=== PATIENT | female | born 1960 | race Caucasian/White ===

== ENCOUNTER 2017-12-06 09:16 | Emergency (ER) | payer MEDICAID, SELFPAY ==
[2017-12-06 09:19] VITALS: BP 133/65; PULSE 76; RESP 18; TEMP 36.6; O2SAT 98
[2017-12-06] MEDS: Amoxicillin 875/Clav. 125 TAB PO (10:15)
--- NOTE | 2017-12-06 10:30 | W.ED.GENAD ---
Discharge Plan Disposition Patient Disposition: HOME Condition: Stable Discharge Details Chief Complaint: DentalOral Clinical Impression: Dental infection Primary Care Provider: NONE,NONE ED Provider: Walter Junior Home Meds and New Rx's Prescriptions: New ibuprofen [IBU] 600 mg tablet 600 mg PO QID PRN (Reason: pain) Qty: 14 RF: 0 amoxicillin-pot clavulanate [Augmentin] 875-125 mg tablet 1 tab PO BID Qty: 20 RF: 0 Discontinued ibuprofen 200 MG tablet 800 mg PO DAILY RF: 0 Discharge Instructions Instructions: Dental Abscess (ED) Additional Instructions: If not seeing signs of improvement please return to the emergency department in 24-48 hours or if you notice any significant worsening of her symptoms return immediately otherwise it is beneficial for you to follow-up with a dental provider for more definitive care of your infected teeth. Referrals: Primary Care Provider [Outside] (as needed) Medical Decision Making Patient presenting to the emergency department for chief complaint of dental infection. Patient has swelling to her left lower jaw with mild external erythema. There is no fluctuance but significant induration is noted. Patient has poor patient throughout the entirety of the oral cavity with multiple missing teeth and severe dental caries. There is concern for dental infection but no signs of Vince's angina, retropharyngeal or peritonsillar abscess. Patient was placed on penicillin in August so I do feel that patient on Augmentin would be beneficial at this time. Patient was strongly encouraged to seek definitive care with a dentist as she extractions to resolve her problem. After discussion of diagnosis and plan of care patient is no further needs, questions, or concerns and states clear understanding to return to the emergency department for any worsening symptoms. HPI General Mode of arrival: ambulatory. Date/Time Provider Initiated Documentation: 12/06/17 09:58. Limitations to Documentation: no limitations. Information obtained by: patient, RN notes reviewed and old records reviewed. History of Present Illness 57 year old F presents to the emergency department with the chief complaint of Dental infection, described as moderate, with intensity rated at 5. and is localized to the mouth. Patient reports no radiation. Patient started experiencing this day(s) (3) and it has been constant. No relieving factors improve symptom(s), No exacerbating factors reported . Patient notes no other symptoms.. Patient did receive the following treatments prior to arrival, NSAID Related Data Home Medications Medication Instructions Recorded Confirmed amoxicillin-pot clavulanate 1 tab PO BID #20 tab 12/06/17 [Augmentin] ibuprofen [IBU] 600 mg PO QID PRN #14 tab 12/06/17 Previous Rx's Medication Instructions Recorded amoxicillin-pot clavulanate 1 tab PO BID #20 tab 12/06/17 [Augmentin] ibuprofen [IBU] 600 mg PO QID PRN #14 tab 12/06/17 Allergies Allergy/AdvReac Type Severity Reaction Status Date / Time codeine Allergy Severe Anaphylaxsi Unverified 12/06/17 09:24 s egg whites Allergy Severe Wheezing Uncoded 12/06/17 09:24 marshmellow Allergy Severe Wheezing Uncoded 12/06/17 09:24 General Stated Complaint: DentalOral HADLEY: 3 Review of Systems Constitutional Denies body ache(s), Denies chills and Denies fever(s) ENT Reports as per HPI, Reports dental pain, Denies throat swelling and Denies tongue swelling Cardiovascular Denies chest pain and Denies dyspnea Respiratory Denies dyspnea Gastrointestinal Denies abdominal pain, Denies nausea and Denies vomiting Integumentary/Breasts Denies rash Neurologic Denies confusion and Denies sensory deficit Psychiatric Denies confusion Allergic/Immunologic Denies throat swelling and Denies tongue swelling PFSH Medical History Depression Fibromyalgia Tobacco abuse disorder Vitamin D deficiency Social History Smoking/Tobacco Use Status: Current every day Surgical History Abdominal hysterectomy Colonoscopy - IV Sedation Oophrectomy, Left Exam Const General: cooperative, no acute distress and not ill appearing Orientation: alert, awake and oriented x3 HENMT Head: normal to inspection Face and sinus: erythema (as noted below), edema (as noted below) and no fluctuance Face images: 1. Erythema and swelling Mouth: lip normal, tongue normal, moist mucous membranes, no drooling and no trismus Teeth and gingiva: poor dentition (throughout) Teeth image: 1. mild erythema no fluctuance, no drainage Throat: posterior oropharynx normal Resp Effort & Inspection: normal respiratory effort, able to speak in complete sentences and no respiratory distress Skin General skin exam: no rashes or lesions noted Neuro General: alert, awake, oriented x3, moves all extremities and no focal motor deficits Sensory Exam: no sensory deficits noted Course Vital Signs Temperature 36.6 C 12/06/17 09:19 Pulse 76 12/06/17 09:19 Respiratory Rate 18 12/06/17 09:19 Blood Pressure 133/65 12/06/17 09:19 Pulse Oximetry 98 12/06/17 09:19 Temperature 36.6 C 12/06/17 09:19 Temperature Source Skin 12/06/17 09:19 Pulse 76 12/06/17 09:19 Respiratory Rate 18 12/06/17 09:19 Respiratory Effort 12/06/17 09:23 Blood Pressure 133/65 12/06/17 09:19 Blood Pressure Position Sitting 12/06/17 09:19 Pulse Oximetry 98 12/06/17 09:19 Oxygen Delivery Method Room Air 12/06/17 09:19 Oxygen Flow Rate 0 12/06/17 09:19 Pain Level 5 12/06/17 09:25
--- NOTE | 2017-12-06 10:38 | ED.GENADUL_ITS ---
Discharge Plan Disposition Patient Disposition: HOME Condition: Stable Discharge Details Chief Complaint: DentalOral Clinical Impression: Dental infection Primary Care Provider: NONE,NONE ED Provider: Walter Junior Home Meds and New Rx's Prescriptions: New ibuprofen [IBU] 600 mg tablet 600 mg PO QID PRN (Reason: pain) Qty: 14 RF: 0 amoxicillin-pot clavulanate [Augmentin] 875-125 mg tablet 1 tab PO BID Qty: 20 RF: 0 Discontinued ibuprofen 200 MG tablet 800 mg PO DAILY RF: 0 Discharge Instructions Instructions: Dental Abscess (ED) Additional Instructions: If not seeing signs of improvement please return to the emergency department in 24-48 hours or if you notice any significant worsening of her symptoms return immediately otherwise it is beneficial for you to follow-up with a dental provider for more definitive care of your infected teeth. Referrals: Primary Care Provider [Outside] (as needed) Medical Decision Making Patient presenting to the emergency department for chief complaint of dental infection. Patient has swelling to her left lower jaw with mild external erythema. There is no fluctuance but significant induration is noted. Patient has poor patient throughout the entirety of the oral cavity with multiple missing teeth and severe dental caries. There is concern for dental infection but no signs of Vince's angina, retropharyngeal or peritonsillar abscess. Patient was placed on penicillin in August so I do feel that patient on Augmentin would be beneficial at this time. Patient was strongly encouraged to seek definitive care with a dentist as she extractions to resolve her problem. After discussion of diagnosis and plan of care patient is no further needs, questions, or concerns and states clear understanding to return to the emergency department for any worsening symptoms. HPI General Mode of arrival: ambulatory . Date/Time Provider Initiated Documentation: 12/06/17 09:58 . Limitations to Documentation: no limitations . Information obtained by: patient, RN notes reviewed and old records reviewed . History of Present Illness 57 year old F presents to the emergency department with the chief complaint of Dental infection, described as moderate, with intensity rated at 5. and is localized to the mouth. Patient reports no radiation. Patient started experiencing this day(s) (3) and it has been constant. No relieving factors improve symptom(s), No exacerbating factors reported . Patient notes no other symptoms.. Patient did receive the following treatments prior to arrival, NSAID Related Data Home Medications Medication Instructions Recorded Confirmed amoxicillin-pot clavulanate 1 tab PO BID #20 tab 12/06/17 [Augmentin] ibuprofen [IBU] 600 mg PO QID PRN #14 tab 12/06/17 Previous Rx's Medication Instructions Recorded amoxicillin-pot clavulanate 1 tab PO BID #20 tab 12/06/17 [Augmentin] ibuprofen [IBU] 600 mg PO QID PRN #14 tab 12/06/17 Allergies Allergy/AdvReac Type Severity Reaction Status Date / Time codeine Allergy Severe Anaphylaxsi Unverified 12/06/17 09:24 s egg whites Allergy Severe Wheezing Uncoded 12/06/17 09:24 marshmellow Allergy Severe Wheezing Uncoded 12/06/17 09:24 General Stated Complaint: DentalOral HADLEY: 3 Review of Systems Constitutional Denies body ache(s), Denies chills and Denies fever(s) ENT Reports as per HPI, Reports dental pain, Denies throat swelling and Denies tongue swelling Cardiovascular Denies chest pain and Denies dyspnea Respiratory Denies dyspnea Gastrointestinal Denies abdominal pain, Denies nausea and Denies vomiting Integumentary/Breasts Denies rash Neurologic Denies confusion and Denies sensory deficit Psychiatric Denies confusion Allergic/Immunologic Denies throat swelling and Denies tongue swelling PFSH Medical History Depression Fibromyalgia Tobacco abuse disorder Vitamin D deficiency Social History Smoking/Tobacco Use Status: Current every day Surgical History Abdominal hysterectomy Colonoscopy - IV Sedation Oophrectomy, Left Exam Const General: cooperative, no acute distress and not ill appearing Orientation: alert, awake and oriented x3 HENMT Head: normal to inspection Face and sinus: erythema (as noted below), edema (as noted below) and no fluctuance Face images: 2 1. Erythema and swelling Mouth: lip normal, tongue normal, moist mucous membranes, no drooling and no trismus Teeth and gingiva: poor dentition (throughout) Teeth image: 2 1. mild erythema no fluctuance, no drainage Throat: posterior oropharynx normal Resp Effort & Inspection: normal respiratory effort, able to speak in complete sentences and no respiratory distress Skin General skin exam: no rashes or lesions noted Neuro General: alert, awake, oriented x3, moves all extremities and no focal motor deficits Sensory Exam: no sensory deficits noted Course Vital Signs Temperature 36.6 C 12/06/17 09:19 Pulse 76 12/06/17 09:19 Respiratory Rate 18 12/06/17 09:19 Blood Pressure 133/65 12/06/17 09:19 Pulse Oximetry 98 12/06/17 09:19 Temperature 36.6 C 12/06/17 09:19 Temperature Source Skin 12/06/17 09:19 Pulse 76 12/06/17 09:19 Respiratory Rate 18 12/06/17 09:19 Respiratory Effort 12/06/17 09:23 Blood Pressure 133/65 12/06/17 09:19 Blood Pressure Position Sitting 12/06/17 09:19 Pulse Oximetry 98 12/06/17 09:19 Oxygen Delivery Method Room Air 12/06/17 09:19 Oxygen Flow Rate 0 12/06/17 09:19 Pain Level 5 12/06/17 09:25
[2017-12-06 10:45] VITALS: BP 107/83; PULSE 94; RESP 16; TEMP 36.9; O2SAT 97
== END 2017-12-06 10:50 | disposition home or self-care (01) ==
PROVIDERS: Emergency Provider Nurse Practitioner Family
DX: K04.7 Periapical abscess without sinus (principal)
CPT/HCPCS: 99283

== ENCOUNTER 2021-05-09 17:17 | Emergency (ER) | payer MEDICARE, SELFPAY ==
[2021-05-09 17:28] VITALS: PULSE 128; RESP 14; TEMP 36.8; O2SAT 96
--- NOTE | 2021-05-09 17:45 | DI.RAD_ITS ---
Exam(s) XR PELVIS AP XR FEMUR LT EXAM: XR PELVIS AP and XR femur LT CLINICAL HISTORY: fall, large hematoma prox left thigh. TECHNIQUE: 2D digital imaging was performed of the left hip. Five views were obtained. AP pelvis a nd lateral left hip views were obtained. COMPARISON: CR ABD FLAT UPRIGHT PA CHEST from 07/02/2014 FINDINGS: BONES: No acute fracture is present. No bony destructive lesion is seen. JOINTS: No dislocation present. SOFT TISSUE: There is a large amount of soft tissue swelling lateral to the left hip. No radiopaque foreign body is seen. IMPRESSION: 1. No acute fracture in the pelvis or left femur. 2. Marked soft tissue swelling lateral to the left hip. DATA REPOSITORY: RADIATION DOSE DELIVERED:
--- NOTE | 2021-05-09 17:48 | ED.GENADUL_ITS ---
Discharge Plan Disposition Patient Disposition: HOME Condition: Stable Discharge Details Clinical Impression: Hematoma of left thigh Primary Care Provider: Allie Dickson ED Provider: Mp Altman Home Meds and New Rx's Prescriptions: Continued ibuprofen [IBU] 600 mg tablet 600 mg PO QID PRN (Reason: pain) Qty: 14 0RF Discharge Instructions Instructions: Hematoma (ED) Additional Instructions: Your xrays did not show any broken bones follow up with your primary care provider in 1-2 weeks if hematoma is not improving if you feel more ill or have severe worsening pain or new pain such as abdominal pain return to the emergency department Medical Decision Making <Suhail Montero MD - Last Filed: 05/09/21 18:24> 61-year-old female denies past medical history presents after falling earlier today being pulled down by her dog while walking her dog, fell onto her left side, large hematoma developed over her left proximal thigh, nonpulsatile, no crepitus or deformity; patient resting comfortably, no acute distress, full range of motion hip knee ankle foot, DP pulse intact sensation intact, patient ambulatory on arrival, lower suspicion for femoral fracture or pelvic fracture, likely contusion with soft tissue hematoma, soft compartments on examination with intact neurovascular exam low suspicion for compartment syndrome, patient denies blood thinner use and is comfortable at this time would like a Tylenol. Screening x-ray pelvis and left femur given age and mechanism and large hematoma however likely home with close follow-up and return precautions as needed. 18: 23 patient resting notably no acute distress. Repeat vital signs in progress, heart rate now is 99. Patient does endorse being anxious being out in public and being in the hospital. Low suspicion for hemodynamic compromise related to blood loss; non-expanding hematoma on examination. Awaiting imaging. Resting comfortably. <Mp Altman MD - Last Filed: 05/09/21 20:11> 61-year-old female denies past medical history presents after falling earlier today being pulled down by her dog while walking her dog, fell onto her left side, large hematoma developed over her left proximal thigh, nonpulsatile, no crepitus or deformity; patient resting comfortably, no acute distress, full range of motion hip knee ankle foot, DP pulse intact sensation intact, patient ambulatory on arrival, lower suspicion for femoral fracture or pelvic fracture, likely contusion with soft tissue hematoma, soft compartments on examination with intact neurovascular exam low suspicion for compartment syndrome, patient denies blood thinner use and is comfortable at this time would like a Tylenol. Screening x-ray pelvis and left femur given age and mechanism and large hematoma however likely home with close follow-up and return precautions as needed. 18: 23 patient resting notably no acute distress. Repeat vital signs in progress, heart rate now is 99. Patient does endorse being anxious being out in public and being in the hospital. Low suspicion for hemodynamic compromise related to blood loss; non-expanding hematoma on examination. Awaiting imaging. Resting comfortably. no acute findings on either xray, pt ambulating without a limp and has no other pain, intact neurovascular exam. Advised her hematoma on exam will resolve with time advised to f/u with her pcp and return precautions given HPI <Suhail Montero MD - Last Filed: 05/09/21 18:24> General Date/Time Provider Initiated Documentation: 05/09/21 17:45 . HPI Narrative: 61-year-old female denies past medical history endorses walking her dog earlier today, the dog was chasing a car nearby and pulled her forward by the leash, she landed on her left hip, ambulatory without assistance mild abrasion to fingers, no head injury no chest or abdominal injury, had mild pain to left hip, noted large hematoma developed later after incident. Denies blood thinner use Related Data Home Medications Medication Instructions Recorded Confirmed ibuprofen 600 mg tablet (IBU) 600 mg PO QID PRN #14 tab 12/06/17 05/09/21 Previous Rx's Medication Instructions Recorded ibuprofen 600 mg tablet (IBU) 600 mg PO QID PRN #14 tab 12/06/17 Allergies Allergy/AdvReac Type Severity Reaction Status Date / Time codeine Allergy Severe Anaphylaxsi Unverified 05/09/21 17:31 s egg whites Allergy Severe Wheezing Uncoded 05/09/21 17:31 marshmellow Allergy Severe Wheezing Uncoded 05/09/21 17:31 General Stated Complaint: Trauma HADLEY: 3 Review of Systems <Suhail Montero MD - Last Filed: 05/09/21 18:24> Narrative: Review of Systems Constitutional: negative Eyes: negative ENT: negative Cardiovascular: negative Respiratory: negative Gastrointestinal: negative : negative Musculoskeletal: Hip pain, hematoma Skin: negative Neurologic: negative Psych: negative PFSH <Suhail Montero MD - Last Filed: 05/09/21 18:24> All Active Problems (Updated 05/09/21 @ 20:09 by Mp Altman MD) Hematoma of left thigh (Acute) Medical History (Updated 05/09/21 @ 20:09 by Mp Altman MD) Anxiety Depression Fibromyalgia IBS (irritable bowel syndrome) Last [place]: 10/12/13 w/ Dr. 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 Also referred to [facility] for further evaluation of abd pain, fecal urgency and diarrhea - seen by Dr Bassett 11/29/2014, IBS - tx with Bentyl and Citrucel. No colo f/up was able to be found. mg Tobacco abuse disorder Vitamin D deficiency Surgical History (Updated 05/10/18 @ 14:02 by Laura Angulo RN) Abdominal hysterectomy Colonoscopy - IV Sedation H/O colonoscopy Last [place]: 10/12/13 w/ Dr. 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 Also referred to [facility] for further evaluation of abd pain, fecal urgency and diarrhea - seen by Dr Bassett 11/29/2014, tx with Bentyl and Citrucel. No colo f/up was able to be found. mg Oophrectomy, Left Social History Smoking/Tobacco Use Status: Current every day Tobacco Type: cigarettes Smoking risk assessment performed?: Yes Alcohol Intake: never Drug use: Daily Substance use type: marijuana Do you feel safe at home: Yes Do you feel safe in your relationship?: Yes Exam <Suhail Montero MD - Last Filed: 05/09/21 18:24> Narrative Exam Narrative: Physical Examination General: alert, awake, cooperative, resting comfortably, no acute distress HEENT: normocephalic, atraumatic; PERRL, EOM intact, conjunctiva normal; no nasal discharge; moist mucous membranes, oral and pharyngeal mucosa normal, tolerating secretions Neck: supple, trachea midline; full ROM Chest: normal to inspection Respiratory: normal respiratory effort, speaking in full sentences, clear to auscultation, no wheezing, rales or rhonchi Cardiac: regular rate, regular rhythm, S1S2 intact, no murmurs rubs or gallops GI: abdomen soft, non-tender, non-distended; no palpable mass or hepatosplenomegaly Skin: no lesions, rashes; large hematoma to left thigh Neuro: AAOx3, normal speech, moving all extremities Extremities: Left lower extremity: Full range of motion at hip knee ankle and foot, warm well perfused sensate extremity, DP pulse intact, large hematoma to proximal left thigh nonpulsatile no tenderness or crepitus on examination, pelvis stable Psych: Appropriate mood and affect Course <Suhail Montero MD - Last Filed: 05/09/21 18:24> Vital Signs Vital signs: Vital Signs Temperature 36.8 C 05/09/21 17:28 Pulse 128 H 05/09/21 17:28 Respiratory Rate 14 05/09/21 17:28 Pulse Oximetry 96 05/09/21 17:28 Temperature 36.8 C 05/09/21 17:28 Temperature Source Temporal Artery Scan 05/09/21 17:28 Pulse 128 H 05/09/21 17:28 Respiratory Rate 14 05/09/21 17:28 Respiratory Effort Non-Labored 05/09/21 17:32 Blood Pressure Position Sitting 05/09/21 17:28 Pulse Oximetry 96 05/09/21 17:28 Oxygen Delivery Method Room Air 05/09/21 17:28 Oxygen Flow Rate 0 05/09/21 17:28 Pain Level 2 05/09/21 17:28 Sign Out <Suhail Montero MD - Last Filed: 05/09/21 18:24> Sign Out Data: Sign Out Comment: awaiting xr results, if negative home Last updated by Suhail Montero MD at 05/09/21 19:56
[2021-05-09] MEDS: Acetaminophen 325 MG TAB 650 MG PO (18:38)
[2021-05-09 19:11] VITALS: BP 139/60; PULSE 95; O2SAT 99
--- NOTE | 2021-05-09 20:06 | DI.VRAD_ITS ---
PROCEDURE INFORMATION: Exam: XR Left Femur Exam date and time: 05/09/2021 17:47 Age: 61 years old Clinical indication: Other: Fall large hematoma left thigh TECHNIQUE: Imaging protocol: XR Left femur. Views: 2 views. COMPARISON: CR XR PELVIS AP 05/09/2021 19:27 FINDINGS: Bones/joints: No acute fracture or subluxation. The bones are demineralized. Soft tissues: Hematoma/swelling overlying the left hip consistent with the clinical history. Vasculature: Atherosclerosis. IMPRESSION: No acute bony pathology. Dictated and Authenticated by: Hope Gomez MD. Ordering:JELANI Jang MD
--- NOTE | 2021-05-09 20:06 | DI.VRAD_ITS ---
PROCEDURE INFORMATION: Exam: XR Pelvis Exam date and time: 05/09/2021 17:47 Age: 61 years old Clinical indication: Other: Fall large hematoma prox left thigh TECHNIQUE: Imaging protocol: XR pelvis. Views: 1 or 2 view. COMPARISON: CT ABDOMEN PELVIS W 06/02/2018 09:15 FINDINGS: Bones/joints: See Soft tissues finding. Soft tissues: Hematoma/swelling overlying the left hip consistent with the clinical history. No acute fracture or subluxation. IMPRESSION: No acute bony pathology. Dictated and Authenticated by: Hope Gomez MD. Ordering:JELANI Jang MD
== END 2021-05-09 20:15 | disposition home or self-care (01) ==
PROVIDERS: Emergency Provider Emergency Medicine; PCP Nurse Practitioner Family
DX: S70.12XA Contusion of left thigh, initial encounter (principal); W01.0XXA Fall on same level from slipping, tripping and stumbling without subsequent striking against object, initial encounter
CPT/HCPCS: 73552; 99284; 72170; 99283

== ENCOUNTER 2022-09-26 13:43 | Emergency (ER) | payer MEDICARE, SELFPAY ==
[2022-09-26 14:04] VITALS: BP 144/66; PULSE 102; RESP 20; TEMP 36.5; O2SAT 97
--- NOTE | 2022-09-26 15:30 | DI.RAD_ITS ---
Exam(s) XR CHEST 2V PA LATERAL EXAM: XR CHEST 2V PA LATERAL CLINICAL HISTORY: cough, sob for one week. TECHNIQUE: 2D digital imaging was performed. COMPARISON: No exams were available for comparison FINDINGS: 2 views: Heart size is normal. The mediastinum is not widened. Lungs are clear. No infiltrates nor pleural effusions. IMPRESSION: No acute pulmonary findings. DATA REPOSITORY: RADIATION DOSE DELIVERED:
--- NOTE | 2022-09-26 15:30 | DI.RAD_ITS ---
Exam(s) XR WRIST LT COMPLETE EXAM: XR WRIST LT COMPLETE CLINICAL HISTORY: fall, left wrist pain. TECHNIQUE: 2D digital imaging was performed. COMPARISON: No exams were available for comparison FINDINGS: 3 views No evidence of acute fracture or dislocation. No abnormal soft tissue calcifications. No significan t ulnar variance. No osseous lesions nor erosions. No obvious degenerative changes. IMPRESSION: No acute osseous findings in the wrist. DATA REPOSITORY: RADIATION DOSE DELIVERED:
[2022-09-26] MEDS: Albuterol HFA 8 GM 60 PUFF INH IH (15:45)
--- NOTE | 2022-09-26 16:23 | DI.VRAD_ITS ---
PROCEDURE INFORMATION: Exam: XR Chest Exam date and time: 09/26/2022 3:55 PM Age: 62 years old Clinical indication: Shortness of breath TECHNIQUE: Imaging protocol: Radiologic exam of the chest. Views: 2 views. COMPARISON: CT ABDOMEN PELVIS W 06/02/2018 9:15 AM FINDINGS: Lungs: The lung volumes are mildly increased. Subtle increase in the right upper lobe subpleural parenchyma. No lobar consolidations or pulmonary edema. Pleural spaces: Unremarkable. No pleural effusion. No pneumothorax. Heart/Mediastinum: Unremarkable. No cardiomegaly. Bones/joints: The spine demonstrates mild degenerative changes at multiple levels. IMPRESSION: Subtle changes in the right apical area could be due to early pneumonia/bronchitis. Suggest follow-up examination conclusion therapy. Dictated and Authenticated by: Hugh Davey MD. Ordering:YESENIA Mills MD
--- NOTE | 2022-09-26 16:24 | DI.VRAD_ITS ---
PROCEDURE INFORMATION: Exam: XR Left Wrist Exam date and time: 09/26/2022 4:00 PM Age: 62 years old Clinical indication: Other: Left wrist pain TECHNIQUE: Imaging protocol: Radiologic exam of the left wrist. Views: 3 or more views. PA, oblique and lateral images. COMPARISON: No relevant prior studies available. FINDINGS: Bones/joints: Normal. Soft tissues: Normal. IMPRESSION: No acute findings. Dictated and Authenticated by: Hugh Davey MD. Ordering:YESENIA Mills MD
--- NOTE | 2022-09-26 19:01 | ED.GENADUL_ITS ---
Discharge Plan Disposition Patient Disposition: Home Discharge Details Clinical Impression: Pneumonia Primary Care Provider: Allie Dickson ED Provider: Lina Do Home Meds and New Rx's Prescriptions: New doxycycline hyclate 100 mg capsule 100 mg PO BID Qty: 20 0RF doxycycline hyclate 100 mg tablet 100 mg PO BID 10 Days Qty: 20 0RF prednisone 20 mg tablet 40 mg PO ONCE Qty: 10 0RF Discontinued ibuprofen [IBU] 600 mg tablet 600 mg PO QID PRN (Reason: pain) Qty: 14 0RF Discharge Instructions Instructions: Pneumonia (ED) Additional Instructions: take the antibiotic as prescribed Take the prednisone daily Yogurt daily while on antibiotic Use the inhaler, 2 puffs every 4-6 hours as needed for cough, wheeze, shortness of breath There is no evidence of obvious fracture on your wrist Please return earlier should you have new or worsening complaints Referrals: Allie Dickson [Primary Care Provider] - 1 day Medical Decision Making 62-year-old female, repeat pulse of 92, vitals otherwise stable, oxygen saturation of 97% Chest x-ray shows possible right upper lobe infiltrate, no respecters for TB per patient Alert, oriented, no acute distress Will give albuterol inhaler with spacer, steroids, antibiotics Patient is otherwise in no acute distress, specifically no respiratory distress Low suspicion clinically for pulmonary embolism Encouraged to follow-up with primary care physician, she is in [facility] patient, she will be placed on list for follow-up HPI General Date/Time Provider Initiated Documentation: 09/26/22 14:15 . HPI Narrative: This 62-year-old female presents with report of cough, congestion, and shortness of breath for the last several days. She states that her symptoms have been worsening which is why she presents. She smokes daily. She denies known history of COPD or asthma. She has had some intermittent right upper chest or thorax pain, she has not had no anterior chest wall pain. She denies any calf pain or swelling, recent flights, surgeries, long drives, or history of coagulopathy. Related Data Home Medications Medication Instructions Recorded Confirmed doxycycline hyclate 100 mg capsule 100 mg PO BID #20 caps 09/26/22 doxycycline hyclate 100 mg tablet 100 mg PO BID 10 days #20 tabs 09/26/22 prednisone 20 mg tablet 40 mg PO ONCE #10 tabs 09/26/22 Previous Rx's Medication Instructions Recorded doxycycline hyclate 100 mg capsule 100 mg PO BID #20 caps 09/26/22 doxycycline hyclate 100 mg tablet 100 mg PO BID 10 days #20 tabs 09/26/22 prednisone 20 mg tablet 40 mg PO ONCE #10 tabs 09/26/22 Allergies Allergy/AdvReac Type Severity Reaction Status Date / Time codeine Allergy Severe Anaphylaxsi Unverified 05/09/21 17:31 s egg whites Allergy Severe Wheezing Uncoded 05/09/21 17:31 marshmellow Allergy Severe Wheezing Uncoded 05/09/21 17:31 General Stated Complaint: RespSymp HADLEY: 4 PFS All Active Problems (Updated 09/26/22 @ 16:27 by ALEKSANDR Peterson) Pneumonia (Acute) Medical History (Updated 09/26/22 @ 16:27 by ALEKSANDR Peterson) Anxiety Depression Fibromyalgia IBS (irritable bowel syndrome) Last [place]: 10/12/13 w/ Dr. 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 [address] referred to [facility] for further evaluation of abd pain, fecal urgency and diarrhea - seen by Dr Bassett 11/29/2014, IBS - tx with Bentyl and Citrucel. No colo f/up was able to be found. mg Tobacco abuse disorder Vitamin D deficiency Surgical History (Updated 05/10/18 @ 14:02 by Laura Angulo RN) Abdominal hysterectomy Colonoscopy - IV Sedation H/O colonoscopy Last [place]: 10/12/13 w/ Dr. 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 Also referred to [facility] for further evaluation of abd pain, fecal urgency and diarrhea - seen by Dr Bassett 11/29/2014, tx with Bentyl and Citrucel. No colo f/up was able to be found. mg Oophrectomy, Left Social History Smoking/Tobacco Use Status: Current every day Tobacco Type: cigarettes Smoking risk assessment performed?: Yes Alcohol Intake: never Drug use: Daily Substance use type: marijuana Do you feel safe at home: Yes Do you feel safe in your relationship?: Yes Course Vital Signs Vital signs: Vital Signs Temperature 36.5 C 09/26/22 14:04 Pulse 102 H 09/26/22 14:04 Respiratory Rate 20 09/26/22 14:04 Blood Pressure 144/66 H 09/26/22 14:04 Pulse Oximetry 97 09/26/22 14:04 Temperature 36.5 C 09/26/22 14:04 Temperature Source Rectal 09/26/22 14:04 Pulse 102 H 09/26/22 14:04 Respiratory Rate 20 09/26/22 14:04 Respiratory Effort Normal 09/26/22 14:12 Respiratory Depth Normal 09/26/22 14:12 Blood Pressure 144/66 H 09/26/22 14:04 Blood Pressure Position Sitting 09/26/22 14:04 Pulse Oximetry 97 09/26/22 14:04 Oxygen Delivery Method Room Air 09/26/22 14:04 Oxygen Flow Rate 0 09/26/22 14:04 Pain Level 3 09/26/22 14:04
== END 2022-09-26 16:44 | disposition home or self-care (01) ==
PROVIDERS: Emergency Provider Physician Assistant; PCP Nurse Practitioner Family
DX: J18.9 Pneumonia, unspecified organism (principal); R05.9 Cough, unspecified; R06.02 Shortness of breath
CPT/HCPCS: 87426; 99284; 71046; 73110

== ENCOUNTER → 2024-12-04 09:19 | Outpatient (BNVA) | payer MEDICARE, SELFPAY | PROVIDERS: Referring Provider Nurse Practitioner Family; Visit Provider Student in an Organized Health Care Education/Training Program | DX: S31.000A Unspecified open wound of lower back and pelvis without penetration into retroperitoneum, initial encounter (principal); W19.XXXA Unspecified fall, initial encounter; Y93.K1 Activity, walking an animal | CPT/HCPCS: 99214 ==